=== PATIENT | male | born 1975 | race Caucasian/White ===

== ENCOUNTER 2019-11-17 14:18 | Emergency (ER) | payer SELFPAY ==
[2019-11-17 14:38] VITALS: BP 125/71; PULSE 78; TEMP 98; BMI 25.7
[2019-11-17] MEDS ORDERED: DIPHTH,PERTUSS(ACELL),TET 0.5 ML DISP.SYRIN IM ONE ×2 (14:41→17:15)
--- NOTE | 2019-11-17 14:41 | PDOC ---
Rapid Medical Evaluation Chief Complaint: Bite Medical Evaluation: Allergies Allergy/AdvReac Type Severity Reaction Status Date / Time No Known Allergies Allergy Verified 11/17/19 14:38 Vital Signs Temp Pulse Resp BP Pulse Ox 98 F 78 18 125/71 97 11/17/19 14:36 11/17/19 14:36 11/17/19 14:36 11/17/19 14:36 11/17/19 14:36 I have performed a brief in-person evaluation of this patient. The patient presents with a chief complaint of: got bit by neighbor's dog along R thigh today; did not ask the neighbor if dog is UTD on rabies; unsure of last tetanus Pertinent physical exam findings: Unable to evaluate leg as wearing pants I have ordered the following: Tetanus, augmentin The patient will proceed to the ED for further evaluation. 11/17/19 14:40
[2019-11-17] MEDS ORDERED: AMOX TR/POT CLAV 875MG/125MG TABLETS (FP) PO ONE (14:42)
[2019-11-17] MEDS ORDERED: AMOX TR/POT CLAV 875MG/125MG TABLETS (FP) ONE (17:15)
[2019-11-17] MEDS ORDERED: IBUPROFEN 400 MG TABLET (FP) PO ONE ×2 (17:29→17:31)
--- NOTE | 2019-11-17 17:40 | PDOC ---
History of Present Illness - General Chief Complaint: Bite Stated Complaint: BITE Time Seen by Provider: 11/17/19 14:40 History Source: Patient Exam Limitations: Clinical Condition - History of Present Illness Initial Comments: 11/17/19 17:34 Patient with no significant past medical history present for evaluation of dog bites to right posterior leg and pain to left shoulder and left elbow status post being attacked by a neighbor's dog while the neighbor was walking the dog and the dog attacked him. Patient reported falling to left side of her body injuring left elbow and shoulder. Patient reported was wearing heavy jeans pants which dog bit him through the pants to posterior right thigh muscle. Patient moderate pain to left elbow and shoulder. Patient does not recall last tetanus vaccine. Patient did not take anything for pain Timing/Duration: reports: just prior to arrival Past History - Past Medical History Allergies/Adverse Reactions: Allergies Allergy/AdvReac Type Severity Reaction Status Date / Time No Known Allergies Allergy Verified 11/17/19 14:38 Home Medications: Ambulatory Orders Amox-Tr/K Cl [Augmentin - 875Mg Tablet] 1 tab PO BID #14 tablet 11/17/19 Ibuprofen 800 mg PO Q8H PRN #20 tablet 11/17/19 COPD: No - Psycho Social/Smoking Cessation Hx Smoking History: Never smoked Review of Systems - Review of Systems Able to Perform ROS?: Yes Is the patient limited [place] proficient: No Constitutional: No: Fever, Night Sweats HEENTM: No: Symptoms Reported, See HPI, Eye Pain, Blurred Vision, Tearing, Recent change in vision, Double Vision, Cataracts, Ear Pain, Ocular Prothesis, Ear Discharge, Nose Pain, Nose Congestion, Tinnitus, Nose Bleeding, Hearing Loss , Throat Pain, Throat Swelling, Mouth Pain, Dental Problems, Difficulty Swallowing, Mouth Swelling, Other Respiratory: No: Symptoms reported, See HPI, Cough, Orthopnea, Shortness of Breath, SOB with Exertion, SOB at Rest, Stridor, Wheezing, Productive cough, Hemoptysis, Other Cardiac (ROS): No: Symptoms Reported Musculoskeletal: Yes: Symptoms Reported, See HPI, Joint Pain (left elbow pain), Muscle Pain (left shoulder pain over top of shoulder). No: Muscle Weakness Integumentary: Yes: Symptoms Reported, See HPI, Other (puncture wound to posterior right thigh ) Neurological: No: Numbness, Paresthesia, Tingling All Other Systems: Reviewed and Negative *Physical Exam - Vital Signs Last Vital Signs Temp Pulse Resp BP Pulse Ox 98 F 78 18 125/71 97 11/17/19 14:36 11/17/19 14:36 11/17/19 14:36 11/17/19 14:36 11/17/19 14:36 - Physical Exam 11/17/19 17:40 GENERAL: Well developed, well nourished. Awake and alert in mild acute distress. PULMONARY: No evidence of respiratory distress. MUSCULOSKELETAL : mild tenderness over AC joint of left shoulder. Moderate tenderness over olecranon of left elbow. Full range of motion of left elbow and shoulder. SKIN: Warm and dry. Normal capillary refill. 1 cm single puncture wound to posterior right thigh with dried blood around puncture wound. No active bleeding NEUROLOGICAL: Alert, awake, appropriate. No motor deficits in the lower extremities. Gait is normal without ataxia. PSYCHIATRIC: Cooperative. Good eye contact. Appropriate mood and affect. General Appearance: Yes: Nourished, Appropriately Dressed, Mild Distress ED Treatment Course - RADIOLOGY Radiology Studies Ordered: Category Date Time Status ELBOW-LEFT [RAD] Stat Radiology 11/17/19 17:27 Ordered SHOULDER-W/TRANS-LEFT [RAD] Stat Radiology 11/17/19 17:27 Ordered - Medications Given in the ED: ED Medications Discontinued Medications Generic Name Dose Route Start Last Admin Trade Name Freq PRN Reason Stop Dose Admin Amoxicillin/Clavulanate Potassium 1 tab 11/17/19 14:42 11/17/19 17:24 Augmentin - 875mg Tablet PO 11/17/19 14:43 1 tab ONCE ONE Administration Diphtheria/Tetanus/Acell Pertussis 0.5 ml 11/17/19 14:41 11/17/19 17:23 Boostrix - IM 11/17/19 14:42 0.5 ml .ONCE ONE Administration Ibuprofen 800 mg 11/17/19 17:29 11/17/19 17:33 Motrin - PO 11/17/19 17:30 800 mg ONCE ONE Administration Medical Decision Making - Medical Decision Making 11/17/19 17:36 Patient with no significant past medical history present for evaluation of dog bites to right posterior leg and pain to left shoulder and left elbow status post being attacked by a neighbor's dog while the neighbor was walking the dog and the dog attacked him. Patient reported falling to left side of her body injuring left elbow and shoulder. Patient reported was wearing heavy jeans pants which dog bit him through the pants to posterior right thigh muscle. Patient moderate pain to left elbow and shoulder. Patient does not recall last tetanus vaccine. Patient did not take anything for pain Exam significant for 1 cm superficial puncture wound to posterior right thigh muscle with open skin with no bleeding. Moderate tenderness to posterior aspect of left elbow over olecranon and AC joint of left shoulder. Full range of motion of left shoulder. Tetanus vaccine ordered for patient due to unknown tetanus status. X-ray of left shoulder and elbow ordered to rule out acute fracture. Motrin 800 mg p.o. ordered for pain. Given patient's dog bite from a neighbor's dog and patient will be able to watch dog, will hold off on rabies vaccine and patient advised to discuss with neighbor about the status of the dog vaccination and will come back if needed for rabies vaccine 11/17/19 17:56 X-ray of left elbow and left shoulder shows no acute abnormality. Patient given sling to help support elbow for the next 2 days and advised to take Motrin as needed for pain. Patient advised to talk to neighbor about dog vaccination and follow-up in clinic. Prescription for Augmentin twice daily for a week sent for infection prophylaxis. Patient stable for discharge Discharge - Discharge Information Problems reviewed: Yes Clinical Impression/Diagnosis: Sprain of left elbow Qualifiers: Encounter type: initial encounter Qualified Code(s): S53.402A - Unspecified sprain of left elbow, initial encounter Left shoulder strain Qualifiers: Encounter type: initial encounter Qualified Code(s): S46.912A - Strain of unspecified muscle, fascia and tendon at shoulder and upper arm level, left arm , initial encounter Dog bite of right thigh without complication Qualifiers: Encounter type: initial encounter Qualified Code(s): S71.151A - Open bite, right thigh, initial encounter Condition: Stable Disposition: HOME - Admission No - Additional Discharge Information Prescriptions: Amox-Tr/K Cl [Augmentin - 875Mg Tablet] 1 tab PO BID #14 tablet Ibuprofen 800 mg PO Q8H PRN #20 tablet PRN Reason: pain - Follow up/Referral - Patient Discharge Instructions Patient Printed Discharge Instructions: How to Care for a Domestic Animal Bite Additional Instructions: X-ray of your left shoulder and elbow shows no acute fracture or dislocation. Your pain likely from shoulder and elbow sprain. Use provided sling to help support elbow for the next 2 days. Use provided Motrin as needed for pain and take prescribed antibiotics and finish. Discussed with your neighbor about dog vaccination make sure it dog have rabies vaccine. You can come back if dog is not vaccinated for rabies vaccine or follow-up with your primary care - Post Discharge Activity
== END 2019-11-17 17:58 | disposition home or self-care (01) ==
LOC: JERFT 14:18
PROC: 3E0234Z Introduction of Serum, Toxoid and Vaccine into Muscle, Percutaneous Approach (ICD-10-PCS; principal; 2019-11-17)
DX: S71.151A Open bite, right thigh, initial encounter (principal); W54.0XXA Bitten by dog, initial encounter; S46.812A Strain of other muscles, fascia and tendons at shoulder and upper arm level, left arm, initial encounter; S53.402A Unspecified sprain of left elbow, initial encounter; Y93.89 Activity, other specified; Y92.480 Sidewalk as the place of occurrence of the external cause; Y99.8 Other external cause status
CPT/HCPCS: 73030-TC-LT-FY; 73070-TC-LT-FY; 90715; 99283-25

== ENCOUNTER 2022-06-04 07:44 | Inpatient (IN) | payer OTHER ==
[2022-06-04] MEDS ORDERED: ACETAMINOPHEN 1000 MG/100 ML BAG IVPB ONE (08:14)
[2022-06-04] MEDS ORDERED: ACETAMINOPHEN INJECTION 100 ML IVPB ONE (08:16)
[2022-06-04 08:25] LABS: BASO % 0.5 % (0-2.0); EOS % 0.1 % (0-4.5); HEMATOCRIT 40.1 % (35.4-49); HEMOGLOBIN 13.1 GM/dL (11.7-16.9); LYMPH % 13.4 % (8-40); MCH 27.5 pg (25.7-33.7); MCHC 32.7 g/dl (32.0-35.9); MEAN CELL VOLUME 84.2 fl (80-96); MEAN PLT VOLUME 8.8 fl (7.5-11.1); MONO % 8.4 % (3.8-10.2); NEUT % 77.6 % (42.8-82.8); PLATELET COUNT 323 10^3/uL (134-434); RBC 4.77 M/mm3 (4.00-5.60); WHITE BLOOD COUNT 13.9 K/mm3 (4.0-10.0)
[2022-06-04] MEDS ORDERED: ASPIRIN 81 MG CHEWABLE TABLETS PO ONE (08:25)
[2022-06-04] MEDS ORDERED: ASPIRIN 81 MG CHEWABLE TABLETS ONE (08:26)
[2022-06-04 08:31] LABS: VENOUS BASE EXCESS 0.1 mmol/L (-2-2); VENOUS O2 SATURATION 48.6 % (70-80); VENOUS PCO2 51.4 mmHg (38-52); VENOUS PH 7.335 (7.310-7.410)
[2022-06-04 08:42] LABS: CHLORIDE 105 mmol/L (98-107); INR 1.18 (0.83-1.09); PROTHROMBIN TIME (PATIENT) 13.6 SEC (9.7-13.0); SODIUM 140 mmol/L (136-145)
[2022-06-04 08:44] LABS: CALCIUM 9.6 mg/dL (8.5-10.1)
[2022-06-04 08:45] LABS: ACTIVATED PTT 29.1 SECONDS (25.2-36.5); ALBUMIN 3.7 g/dl (3.4-5.0); ANION GAP 7 MMOL/L (8-16); BLOOD UREA NITROGEN 9.5 mg/dL (7-18); CO2 28 mmol/L (21-32); GLUCOSE,RANDOM 135 mg/dL (74-106)
[2022-06-04 08:48] LABS: SGOT/AST 37 U/L (15-37); SGPT/ALT 45 U/L (13-61)
[2022-06-04 08:49] LABS: BILIRUBIN,TOTAL 0.9 mg/dL (0.2-1)
[2022-06-04 08:50] LABS: TOT PROT 8.3 g/dl (6.4-8.2)
[2022-06-04 08:51] LABS: ALK PHOS 82 U/L (45-117)
[2022-06-04] MEDS ORDERED: morphine CARPU-JECT 2 MG/1 ML DISP.SYRIN IVPUSH ONE (09:10)
[2022-06-04] MEDS ORDERED: ONDANSETRON 4 MG/2 ML VIAL IVPUSH ONE (09:15)
[2022-06-04] MEDS ORDERED: ONDANSETRON 4 MG/2 ML VIAL ONE (09:18)
[2022-06-04] MEDS ORDERED: AZITHROMYCIN IVPB 500 MG in DEXTROSE 5%-WATER - 250 ML IVPB ONE (10:46)
[2022-06-04] MEDS ORDERED: CEFTRIAXONE 1 GM in DEXTROSE 5%-WATER - 100 ML IVPB ONE (10:46)
[2022-06-04] MEDS ORDERED: CEFTRIAXONE 1 GM/50 ML BAG ONE (10:53)
[2022-06-04] MEDS ORDERED: AZITHROMYCIN IVPB 500 MG/250 ML BAG IVPB ONE (10:54)
[2022-06-04] MEDS ORDERED: ACETAMINOPHEN 325 MG TABLET (FP) ONE (14:52)
[2022-06-04] MEDS ORDERED: ALBUTEROL SO4 2.5/IPRATROPIUM 0.5 INH SOL 3 ML VIAL.NEB. NEB ONE (14:52)
[2022-06-04] MEDS: ACETAMINOPHEN 325 MG TABLET (FP) PO PRN (14:57)
[2022-06-04] MEDS: ALBUTEROL SO4 2.5/IPRATROPIUM 0.5 INH SOL 3 ML VIAL.NEB. NEB SCH (14:58)
[2022-06-04] MEDS ORDERED: IBUPROFEN 800 MG/8 ML IJ IVPB ONE (15:57)
[2022-06-04] MEDS: IBUPROFEN 800 MG/8 ML IJ IVPB PRN (16:08)
[2022-06-04 17:03] LABS: ARTERIAL BLD GAS O2 SATURATION 96.4 % (95-98); ARTERIAL BLOOD GAS BASE EXCESS 2.2 mmol/L (-2-2); ARTERIAL BLOOD GAS PO2 82.8 mmHg (80-100); ARTERIAL BLOOD GAS pH 7.428 (7.350-7.450)
[2022-06-04 17:04] LABS: ALLENS TEST POSITIVE
[2022-06-04] MEDS: PIPERACILLIN/TAZOB 4.5 GM 4.5 GM in DEXTROSE 5%-WATER 100 ML IVPB SCH ×2 (18:29→22:24)
[2022-06-04] MEDS: LACTOBACILLUS ACIDOPHILUS 1 TABLET PO SCH (18:30)
[2022-06-05] MEDS: ALBUTEROL SO4 2.5/IPRATROPIUM 0.5 INH SOL 3 ML VIAL.NEB. NEB SCH ×7 (01:15→20:45)
[2022-06-05] MEDS: ACETAMINOPHEN 325 MG TABLET (FP) PO PRN ×2 (01:24→19:45)
[2022-06-05] MEDS: PIPERACILLIN/TAZOB 4.5 GM 4.5 GM in DEXTROSE 5%-WATER 100 ML IVPB SCH ×5 (01:34→15:41)
[2022-06-05] MEDS: POLYETHYLENE GLYCOL (HEALTHYLAX) 3350 17 GM PACKET PO SCH ×3 (01:57→22:10)
[2022-06-05] MEDS ORDERED: oxyCODONE HCL 5 MG TABLET PO ONE (02:36)
[2022-06-05] MEDS ORDERED: CEFTRIAXONE 1 GM in DEXTROSE 5%-WATER - 50 ML IVPB SCH ×2 (08:00→10:00)
[2022-06-05] MEDS: LACTOBACILLUS ACIDOPHILUS 1 TABLET PO SCH (09:38)
[2022-06-05] MEDS: ENOXAPARIN NA (PORCINE) 40 MG/0.4 ML DISP.SYRIN SQ SCH (09:45)
[2022-06-05] MEDS ORDERED: BUDESONIDE/FORMETEROL FUMARATE 80/4.5 mcg INHALER IH SCH (10:00)
[2022-06-05 11:11] LABS: ARTERIAL BLD GAS O2 SATURATION 95.1 % (95-98); ARTERIAL BLOOD GAS BASE EXCESS 2.2 mmol/L (-2-2); ARTERIAL BLOOD GAS PO2 74.8 mmHg (80-100); ARTERIAL BLOOD GAS pH 7.412 (7.350-7.450)
[2022-06-05 11:12] LABS: ALLENS TEST POSITIVE
[2022-06-05] MEDS: AZITHROMYCIN IVPB 500 MG/250 ML BAG IVPB SCH ×2 (11:21→12:24)
[2022-06-05] MEDS: IBUPROFEN 800 MG/8 ML IJ IVPB PRN (12:04)
[2022-06-05 13:06] LABS: BASO % 0.3 % (0-2.0); EOS % 0.2 % (0-4.5); HEMATOCRIT 35.7 % (35.4-49); HEMOGLOBIN 12.3 GM/dL (11.7-16.9); LYMPH % 9.5 % (8-40); MCH 28.8 pg (25.7-33.7); MCHC 34.4 g/dl (32.0-35.9); MEAN CELL VOLUME 83.7 fl (80-96); MEAN PLT VOLUME 8.6 fl (7.5-11.1); MONO % 7.6 % (3.8-10.2); NEUT % 82.4 % (42.8-82.8); PLATELET COUNT 302 10^3/uL (134-434); RBC 4.26 M/mm3 (4.00-5.60); RDW 12.8 % (11.9-15.9); WHITE BLOOD COUNT 12.6 K/mm3 (4.0-10.0)
[2022-06-05] MEDS ORDERED: LACTATED RINGERS SOLUTION 1,000 ML/1,000 ML INFUS.BAG IV SCH ×2 (15:30)
[2022-06-05] MEDS: SENNOSIDES 8.6MG TABLET (FP) PO SCH (22:10)
[2022-06-06] MEDS: ALBUTEROL SO4 2.5/IPRATROPIUM 0.5 INH SOL 3 ML VIAL.NEB. NEB SCH ×7 (00:30→20:10)
[2022-06-06] MEDS: MELATONIN 5 MG TABLETS PO PRN ×3 (01:39→21:58)
[2022-06-06] MEDS: ACETAMINOPHEN 325 MG TABLET (FP) PO PRN (08:06)
[2022-06-06] MEDS: ENOXAPARIN NA (PORCINE) 40 MG/0.4 ML DISP.SYRIN SQ SCH (09:27)
[2022-06-06] MEDS: POLYETHYLENE GLYCOL (HEALTHYLAX) 3350 17 GM PACKET PO SCH ×2 (09:28→21:38)
[2022-06-06] MEDS: LACTOBACILLUS ACIDOPHILUS 1 TABLET PO SCH (09:28)
[2022-06-06] MEDS: TAMSULOSIN HCL 0.4 MG CAP PO SCH (09:28)
[2022-06-06] MEDS ORDERED: ACETAMINOPHEN 1000 MG/100 ML BAG IVPB ONE (10:28)
[2022-06-06] MEDS ORDERED: ACETAMINOPHEN 1000 MG/100 ML BAG IVPB PRN (19:19)
[2022-06-06] MEDS: SENNOSIDES 8.6MG TABLET (FP) PO SCH (21:39)
[2022-06-06] MEDS ORDERED: guaiFENesin 200 MG/10 ML 10 ML UNIT-DOSE CUPS PO ONE (21:40)
[2022-06-07] MEDS: ALBUTEROL SO4 2.5/IPRATROPIUM 0.5 INH SOL 3 ML VIAL.NEB. NEB SCH ×4 (07:42→20:20)
[2022-06-07 09:27] LABS: BASO % 0.6 % (0-2.0); EOS % 0.8 % (0-4.5); HEMATOCRIT 36.1 % (35.4-49); HEMOGLOBIN 12.4 GM/dL (11.7-16.9); LYMPH % 16.8 % (8-40); MCH 28.9 pg (25.7-33.7); MCHC 34.4 g/dl (32.0-35.9); MEAN CELL VOLUME 84.1 fl (80-96); MEAN PLT VOLUME 8.1 fl (7.5-11.1); MONO % 7.4 % (3.8-10.2); NEUT % 74.4 % (42.8-82.8); PLATELET COUNT 394 10^3/uL (134-434); RBC 4.29 M/mm3 (4.00-5.60); RDW 13.3 % (11.9-15.9); WHITE BLOOD COUNT 9.7 K/mm3 (4.0-10.0)
[2022-06-07] MEDS: POLYETHYLENE GLYCOL (HEALTHYLAX) 3350 17 GM PACKET PO SCH ×2 (09:49→22:57)
[2022-06-07] MEDS: TAMSULOSIN HCL 0.4 MG CAP PO SCH (09:49)
[2022-06-07] MEDS: LACTOBACILLUS ACIDOPHILUS 1 TABLET PO SCH (09:50)
[2022-06-07 09:53] LABS: CALCIUM 9.4 mg/dL (8.5-10.1)
[2022-06-07 09:54] LABS: BLOOD UREA NITROGEN 7.4 mg/dL (7-18)
[2022-06-07] MEDS: ENOXAPARIN NA (PORCINE) 40 MG/0.4 ML DISP.SYRIN SQ SCH (09:55)
[2022-06-07 09:57] LABS: CREATININE 0.8 mg/dL (0.55-1.3)
[2022-06-07 09:58] LABS: BILIRUBIN,TOTAL 0.5 mg/dL (0.2-1)
[2022-06-07 09:59] LABS: TOT PROT 7.3 g/dl (6.4-8.2)
[2022-06-07 10:00] LABS: ALBUMIN 2.8 g/dl (3.4-5.0)
[2022-06-07] MEDS: PIPERACILLIN/TAZOB 3.375 GM 3.375 GM in DEXTROSE 5%-WATER - 50 ML IVPB SCH (17:55)
[2022-06-07] MEDS: SENNOSIDES 8.6MG TABLET (FP) PO SCH (22:56)
[2022-06-08] MEDS ORDERED: guaiFENesin 200 MG/10 ML 10 ML UNIT-DOSE CUPS PO ONE (00:28)
[2022-06-08] MEDS: PIPERACILLIN/TAZOB 3.375 GM 3.375 GM in DEXTROSE 5%-WATER - 50 ML IVPB SCH ×3 (01:37→18:04)
[2022-06-08] MEDS: ALBUTEROL SO4 2.5/IPRATROPIUM 0.5 INH SOL 3 ML VIAL.NEB. NEB SCH ×5 (07:55→20:10)
[2022-06-08] MEDS: TAMSULOSIN HCL 0.4 MG CAP PO SCH (08:26)
[2022-06-08] MEDS: POLYETHYLENE GLYCOL (HEALTHYLAX) 3350 17 GM PACKET PO SCH ×2 (09:38→22:02)
[2022-06-08] MEDS: LACTOBACILLUS ACIDOPHILUS 1 TABLET PO SCH (09:38)
[2022-06-08] MEDS ORDERED: ENOXAPARIN NA (PORCINE) 40 MG/0.4 ML DISP.SYRIN SQ ONE (14:01)
[2022-06-08 15:06] LABS: BASO % 0.5 % (0-2.0); HEMATOCRIT 35.2 % (35.4-49); HEMOGLOBIN 11.9 GM/dL (11.7-16.9); LYMPH % 20.6 % (8-40); MCH 28.4 pg (25.7-33.7); MCHC 33.9 g/dl (32.0-35.9); MEAN CELL VOLUME 83.8 fl (80-96); MEAN PLT VOLUME 7.8 fl (7.5-11.1); MONO % 7.5 % (3.8-10.2); NEUT % 69.4 % (42.8-82.8); PLATELET COUNT 467 10^3/uL (134-434); RDW 13.7 % (11.9-15.9); WHITE BLOOD COUNT 9.2 K/mm3 (4.0-10.0)
[2022-06-08 15:30] LABS: CALCIUM 9.1 mg/dL (8.5-10.1)
[2022-06-08 15:31] LABS: ALBUMIN 2.7 g/dl (3.4-5.0); BLOOD UREA NITROGEN 11.1 mg/dL (7-18)
[2022-06-08 15:34] LABS: CREATININE 0.8 mg/dL (0.55-1.3)
[2022-06-08 15:35] LABS: BILIRUBIN,TOTAL 0.4 mg/dL (0.2-1); TOT PROT 7.1 g/dl (6.4-8.2)
[2022-06-08] MEDS: SENNOSIDES 8.6MG TABLET (FP) PO SCH (22:02)
[2022-06-08] MEDS: MELATONIN 5 MG TABLETS PO PRN (22:06)
[2022-06-09] MEDS: PIPERACILLIN/TAZOB 3.375 GM 3.375 GM in DEXTROSE 5%-WATER - 50 ML IVPB SCH ×3 (02:00→18:05)
[2022-06-09] MEDS: ALBUTEROL SO4 2.5/IPRATROPIUM 0.5 INH SOL 3 ML VIAL.NEB. NEB PRN ×2 (07:45→14:17)
[2022-06-09 08:57] LABS: PH,URINE 5.5 (5.0-8.0); URINE APPEARANCE CLEAR; URINE BILIRUBIN NEGATIVE (NEGATIVE); URINE COLOR YELLOW; URINE GLUCOSE (UA) NEGATIVE (NEGATIVE); URINE KETONE NEGATIVE (NEGATIVE); URINE LEUK ESTERASE NEGATIVE (NEGATIVE); URINE NITRITE NEGATIVE (NEGATIVE); URINE PROTEIN NEGATIVE (NEGATIVE); URINE UROBILINOGEN 0.2 mg/dL (0.2-1.0)
[2022-06-09] MEDS: POLYETHYLENE GLYCOL (HEALTHYLAX) 3350 17 GM PACKET PO SCH ×2 (10:17→21:07)
[2022-06-09] MEDS: LACTOBACILLUS ACIDOPHILUS 1 TABLET PO SCH (10:17)
[2022-06-09] MEDS: ENOXAPARIN NA (PORCINE) 40 MG/0.4 ML DISP.SYRIN SQ SCH (10:17)
[2022-06-09] MEDS: TAMSULOSIN HCL 0.4 MG CAP PO SCH (10:17)
[2022-06-09 12:28] LABS: BASO % 0.9 % (0-2.0); EOS % 1.4 % (0-4.5); HEMATOCRIT 35.1 % (35.4-49); HEMOGLOBIN 12.2 GM/dL (11.7-16.9); LYMPH % 22.5 % (8-40); MCH 29.2 pg (25.7-33.7); MCHC 34.8 g/dl (32.0-35.9); MEAN CELL VOLUME 83.9 fl (80-96); MEAN PLT VOLUME 7.5 fl (7.5-11.1); MONO % 7.7 % (3.8-10.2); NEUT % 67.5 % (42.8-82.8); PLATELET COUNT 499 10^3/uL (134-434); RBC 4.19 M/mm3 (4.00-5.60); RDW 13.9 % (11.9-15.9); WHITE BLOOD COUNT 9.5 K/mm3 (4.0-10.0)
[2022-06-09 13:01] LABS: ALBUMIN 2.7 g/dl (3.4-5.0); BLOOD UREA NITROGEN 10.8 mg/dL (7-18); CREATININE 0.8 mg/dL (0.55-1.3)
[2022-06-09 13:03] LABS: BILIRUBIN,TOTAL 0.4 mg/dL (0.2-1); TOT PROT 7.3 g/dl (6.4-8.2)
[2022-06-09 15:35] VITALS: RESP 18
[2022-06-09] MEDS: SENNOSIDES 8.6MG TABLET (FP) PO SCH (21:07)
[2022-06-09] MEDS: MELATONIN 5 MG TABLETS PO PRN (23:03)
[2022-06-10] MEDS: PIPERACILLIN/TAZOB 3.375 GM 3.375 GM in DEXTROSE 5%-WATER - 50 ML IVPB SCH ×3 (01:21→19:02)
[2022-06-10] MEDS: ALBUTEROL SO4 2.5/IPRATROPIUM 0.5 INH SOL 3 ML VIAL.NEB. NEB PRN ×3 (08:00→20:49)
[2022-06-10] MEDS: TAMSULOSIN HCL 0.4 MG CAP PO SCH (09:53)
[2022-06-10] MEDS: POLYETHYLENE GLYCOL (HEALTHYLAX) 3350 17 GM PACKET PO SCH ×3 (09:54→22:04)
[2022-06-10] MEDS: LACTOBACILLUS ACIDOPHILUS 1 TABLET PO SCH (09:54)
[2022-06-10] MEDS: ENOXAPARIN NA (PORCINE) 40 MG/0.4 ML DISP.SYRIN SQ SCH (09:54)
[2022-06-10 12:41] LABS: HEMATOCRIT 37.4 % (35.4-49); HEMOGLOBIN 12.6 GM/dL (11.7-16.9); MCH 28.5 pg (25.7-33.7); MCHC 33.7 g/dl (32.0-35.9); MEAN CELL VOLUME 84.8 fl (80-96); MEAN PLT VOLUME 7.3 fl (7.5-11.1); PLATELET COUNT 538 10^3/uL (134-434); RBC 4.41 M/mm3 (4.00-5.60); RDW 13.6 % (11.9-15.9); WHITE BLOOD COUNT 9.5 K/mm3 (4.0-10.0)
[2022-06-10 13:07] LABS: BLOOD UREA NITROGEN 11.5 mg/dL (7-18); CALCIUM 9.3 mg/dL (8.5-10.1)
[2022-06-10 13:10] LABS: CREATININE 0.8 mg/dL (0.55-1.3)
[2022-06-10] MEDS: SENNOSIDES 8.6MG TABLET (FP) PO SCH (21:57)
[2022-06-11] MEDS: PIPERACILLIN/TAZOB 3.375 GM 3.375 GM in DEXTROSE 5%-WATER - 50 ML IVPB SCH ×3 (02:02→17:29)
[2022-06-11 10:34] LABS: ALBUMIN 2.7 g/dl (3.4-5.0); CALCIUM 9.1 mg/dL (8.5-10.1); HEMATOCRIT 34.9 % (35.4-49); HEMOGLOBIN 11.8 GM/dL (11.7-16.9); MCH 28.6 pg (25.7-33.7); MCHC 33.7 g/dl (32.0-35.9); MEAN CELL VOLUME 84.7 fl (80-96); MEAN PLT VOLUME 7.3 fl (7.5-11.1); PLATELET COUNT 552 10^3/uL (134-434); RBC 4.12 M/mm3 (4.00-5.60); RDW 13.9 % (11.9-15.9); WHITE BLOOD COUNT 7.7 K/mm3 (4.0-10.0)
[2022-06-11 10:36] LABS: BLOOD UREA NITROGEN 12.2 mg/dL (7-18)
[2022-06-11 10:38] LABS: CREATININE 0.9 mg/dL (0.55-1.3)
[2022-06-11 10:39] LABS: BILIRUBIN,TOTAL 0.3 mg/dL (0.2-1); TOT PROT 6.9 g/dl (6.4-8.2)
[2022-06-11] MEDS: ENOXAPARIN NA (PORCINE) 40 MG/0.4 ML DISP.SYRIN SQ SCH (11:09)
[2022-06-11] MEDS: TAMSULOSIN HCL 0.4 MG CAP PO SCH (11:09)
[2022-06-11] MEDS: POLYETHYLENE GLYCOL (HEALTHYLAX) 3350 17 GM PACKET PO SCH ×2 (11:09→22:09)
[2022-06-11] MEDS: LACTOBACILLUS ACIDOPHILUS 1 TABLET PO SCH (11:09)
[2022-06-11] MEDS: SENNOSIDES 8.6MG TABLET (FP) PO SCH (22:08)
[2022-06-12] MEDS: PIPERACILLIN/TAZOB 3.375 GM 3.375 GM in DEXTROSE 5%-WATER - 50 ML IVPB SCH ×3 (01:51→17:18)
[2022-06-12] MEDS: TAMSULOSIN HCL 0.4 MG CAP PO SCH (08:52)
[2022-06-12] MEDS: ENOXAPARIN NA (PORCINE) 40 MG/0.4 ML DISP.SYRIN SQ SCH (10:00)
[2022-06-12] MEDS: POLYETHYLENE GLYCOL (HEALTHYLAX) 3350 17 GM PACKET PO SCH ×3 (10:00→21:09)
[2022-06-12] MEDS: LACTOBACILLUS ACIDOPHILUS 1 TABLET PO SCH (10:00)
[2022-06-12 12:53] LABS: HEMATOCRIT 39.8 % (35.4-49); HEMOGLOBIN 13.3 GM/dL (11.7-16.9); MCH 28.3 pg (25.7-33.7); MCHC 33.3 g/dl (32.0-35.9); MEAN CELL VOLUME 85.1 fl (80-96); MEAN PLT VOLUME 7.8 fl (7.5-11.1); PLATELET COUNT 736 10^3/uL (134-434); RBC 4.68 M/mm3 (4.00-5.60); WHITE BLOOD COUNT 8.5 K/mm3 (4.0-10.0)
[2022-06-12 13:00] LABS: BLOOD UREA NITROGEN 10.5 mg/dL (7-18); CALCIUM 9.5 mg/dL (8.5-10.1)
[2022-06-12 13:04] LABS: CREATININE 0.8 mg/dL (0.55-1.3)
[2022-06-12 13:58] LABS: HIV INTERPRETATION NEGATIVE (NEGATIVE)
[2022-06-12 15:22] VITALS: BMI 26.8
[2022-06-12] MEDS: SENNOSIDES 8.6MG TABLET (FP) PO SCH (21:07)
[2022-06-13] MEDS: PIPERACILLIN/TAZOB 3.375 GM 3.375 GM in DEXTROSE 5%-WATER - 50 ML IVPB SCH ×3 (01:59→17:47)
[2022-06-13 09:25] LABS: HEMOGLOBIN 12.2 GM/dL (11.7-16.9); MCH 28.5 pg (25.7-33.7); MCHC 33.9 g/dl (32.0-35.9); MEAN CELL VOLUME 84.2 fl (80-96); MEAN PLT VOLUME 7.4 fl (7.5-11.1); PLATELET COUNT 564 10^3/uL (134-434); RBC 4.28 M/mm3 (4.00-5.60); RDW 13.6 % (11.9-15.9); WHITE BLOOD COUNT 7.5 K/mm3 (4.0-10.0)
[2022-06-13 09:52] LABS: ALBUMIN 2.8 g/dl (3.4-5.0); BLOOD UREA NITROGEN 10.5 mg/dL (7-18); CALCIUM 9.3 mg/dL (8.5-10.1)
[2022-06-13 09:55] LABS: CREATININE 0.8 mg/dL (0.55-1.3)
[2022-06-13 09:57] LABS: BILIRUBIN,TOTAL 0.4 mg/dL (0.2-1)
[2022-06-13] MEDS: TAMSULOSIN HCL 0.4 MG CAP PO SCH (10:27)
[2022-06-13] MEDS: LACTOBACILLUS ACIDOPHILUS 1 TABLET PO SCH (10:27)
[2022-06-13] MEDS: ENOXAPARIN NA (PORCINE) 40 MG/0.4 ML DISP.SYRIN SQ SCH (10:28)
[2022-06-13] MEDS: POLYETHYLENE GLYCOL (HEALTHYLAX) 3350 17 GM PACKET PO SCH (10:28)
[2022-06-13 14:51] VITALS: BP 124/75; PULSE 81; TEMP 97.5
[2022-06-14 16:07] LABS: ATYPICAL pANCA <1:20 titer (Neg:<1:20); C-ANCA <1:20 titer (Neg:<1:20)
== END 2022-06-13 18:37 | disposition home or self-care (01) | DRG 720 ==
LOC: JER 07:44 → JERBED 11:17 → J7W 16:40 → J5S 06-05 13:12
PROVIDERS: ADMIT Internal Medicine; ATTEND Internal Medicine
DX: A41.89 Other specified sepsis (principal); J18.9 Pneumonia, unspecified organism; J96.01 Acute respiratory failure with hypoxia; I45.10 Unspecified right bundle-branch block; J44.1 Chronic obstructive pulmonary disease with (acute) exacerbation; D72.829 Elevated white blood cell count, unspecified; R07.89 Other chest pain; K59.00 Constipation, unspecified; N40.0 Benign prostatic hyperplasia without lower urinary tract symptoms; R94.5 Abnormal results of liver function studies; R33.9 Retention of urine, unspecified; Z87.891 Personal history of nicotine dependence; R07.81 Pleurodynia
CPT/HCPCS: 0241U-QW; 36415; 36600; 71045-TC-FY; 71275-TC; 76604-TC; 76856-TC; 80048; 80053; 81003; 82550; 82803; 83520; 83605; 84443; 84484; 85025; 85027; 85610; 85651; 85730; 86140; 86256; 86850; 86900; 86901; 87040; 87389; 87633; 87899; 93005; 93010; 94640; 94761; 97116-GP; 97161-GP; 99285-25; C9803-CS; U0003; U0005

== ENCOUNTER 2022-11-28 04:23 | Day surgery (SDC) | payer OTHER ==
[2022-11-28 09:46] VITALS: RESP 18; TEMP 98
[2022-11-28 10:21] VITALS: BP 112/80; PULSE 67
== END 2022-11-28 10:30 | disposition home or self-care (01) ==
LOC: JASU-ENDO 04:23 → MERGE 04:23 → JASU-ENDO 10:30
PROVIDERS: ATTEND Internal Medicine Gastroenterology
PROC: 0DBP8ZX Excision of Rectum, Via Natural or Artificial Opening Endoscopic, Diagnostic (ICD-10-PCS; principal; 2022-11-28 12:15)
DX: Z12.11 Encounter for screening for malignant neoplasm of colon (principal); K62.1 Rectal polyp
CPT/HCPCS: 88305-TC